=== PATIENT | female | born 1995 ===

== ENCOUNTER 2018-04-09 14:38 | Emergency (ER) | payer MEDICARE, MEDICAID ==
[2018-04-09 14:58] VITALS: BMI 41.6
[2018-04-09 15:03] VITALS: BP 110/81; PULSE 88; RESP 16; TEMP 98.6; O2SAT 98
--- NOTE | 2018-04-09 15:24 | C.PDOC ---
History Of Present Illness 22 y/o female comes in complaining of a 2 day history of sore throat, body aches, and cough. Patient denies fever, nausea, or vomiting. Patient is also complaining of ear pressure but no discharge. Time Seen by Provider: 04/09/18 15:06 Chief Complaint (Nursing): Flu-like Symptoms History Per: Patient History/Exam Limitations: no limitations Onset/Duration Of Symptoms: Days Current Symptoms Are (Timing): Still Present Past Medical History Reviewed: Historical Data, Nursing Documentation, Vital Signs Vital Signs: Last Vital Signs Temp 98.6 F 04/09/18 15:01 Pulse 88 04/09/18 15:01 Resp 16 04/09/18 15:01 BP 110/81 04/09/18 15:01 Pulse Ox 98 04/09/18 15:01 Family History: States: No Known Family Hx - Social History Hx Alcohol Use: No Hx Substance Use: No - Immunization History Hx Tetanus Toxoid Vaccination: No Hx Influenza Vaccination: No Hx Pneumococcal Vaccination: No Review Of Systems Except As Marked, All Systems Reviewed And Found Negative. ENT: Positive for: Throat Pain (Sore throat), Other (Ear pressure) Respiratory: Positive for: Cough Physical Exam - Physical Exam Appears: Non-toxic, No Acute Distress Skin: Warm, Dry Head: Atraumatic, Normacephalic Eye(s): bilateral: Normal Inspection Ear(s): Bilateral: Normal Oral Mucosa: Moist Throat: Other (Tonsillar erythema and hypertrophy with scant exudates) Neck: Supple Chest: Symmetrical Cardiovascular: Rhythm Regular, No Murmur Respiratory: Normal Breath Sounds, No Rales, No Rhonchi, No Wheezing Gastrointestinal/Abdominal: Soft, No Tenderness Extremity: Bilateral: Atraumatic, Normal Color And Temperature, Normal ROM Neurological/Psych: Oriented x3, Normal Speech ED Course And Treatment O2 Sat by Pulse Oximetry: 98 (RA) Pulse Ox Interpretation: Normal Medical Decision Making Medical Decision Making: Impression: Pharyngitis Plan: --Ibuprofen 600 mg PO --Zithromax 500 mg PO --POC Disposition - Disposition Referrals: [facility] [Outside] Disposition: HOME/ ROUTINE Disposition Time: 15:23 Condition: STABLE Additional Instructions: follow up with your doctor within 2 days call to make an appointment take medications as prescribed return to ER if symptoms worsens or progress Prescriptions: Azithromycin [Zithromax] 250 mg PO DAILY #4 tab Naproxen [Naprosyn] 500 mg PO BID PRN #16 tab PRN Reason: Pain, Moderate (4-7) Instructions: Sore Throat, Adult (DC) Forms: General Discharge Instructions, [facility] (E[place]ian), Work Excuse - Clinical Impression Clinical Impression: Pharyngitis - Scribe Statement The provider has reviewed the documentation as recorded by the Santiago Tenorio Provider Attestation: All medical record entries made by the Santiago were at my direction and personally dictated by me. I have reviewed the chart and agree that the record accurately reflects my personal performance of the history, physical exam, medical decision making, and the department course for this patient. I have also personally directed, reviewed, and agree with the discharge instructions and disposition.
== END 2018-04-09 15:33 | disposition home or self-care (01) ==
LOC: C.ER 14:38
DX: J02.9 Acute pharyngitis, unspecified (principal)